=== PATIENT | male | born 1965 | race Caucasian/White ===

== ENCOUNTER 2020-09-06 06:06 | Inpatient (IN) | payer OTHER ==
[~2020-09-06] VITALS: Ht 182.9 cm; Wt 94.3 kg
[~2020-09-06 06:06] MED LIST: TYL3 PO
[2020-09-06] MEDS ORDERED: 0.9%NACL 1000ML 1,000 ML IV ONE (06:45)
[2020-09-06] MEDS ORDERED: ONDANSETRON 4MG INJ ONE ×3 (06:46→22:00)
[2020-09-06] MEDS ORDERED: MORPHINE 4 MG SYG ONE (06:46)
[2020-09-06 06:50] LABS: BASOPHILS % (AUTO) 0.5 % (0.0-5.0); EOSINOPHILS % (AUTO) 0.3 % (0.0-8.0); HEMATOCRIT 45.4 % (42-54); LYMPHOCYTES % (AUTO) 13.2 % (21.0-51.0); MEAN CORPUSCULAR HEMOGLOBIN 35.1 pg (27.0-33.0); MONOCYTES % (AUTO) 6.9 % (3.0-13.0); NEUTROPHILS % (AUTO) 78.6 % (40.0-77.0); PLATELET COUNT (AUTO) 300 K/uL (130-400); RED BLOOD CELL COUNT(AUTO) 4.78 MIL/uL (4.50-6.20); RED CELL DISTRIBUTION WIDTH 12.7 % (11.0-15.5); WHITE BLOOD COUNT (AUTO) 14.7 K/uL (4.8-10.8)
[2020-09-06 06:56] LABS: APPEARANCE,URINE Clear (CLEAR); BILIRUBIN,URINE Negative (NEGATIVE); COLOR,URINE Dark Yellow (YELLOW); GLUCOSE, URINE (UA) Negative (NEGATIVE); KETONES,URINE 15 mg/dL (NEGATIVE); LEUKOCYTE ESTERASE ,URINE Negative (NEGATIVE); NITRATE,URINE Negative (NEGATIVE); OCCULT BLOOD,URINE Negative (NEGATIVE); PROTEIN,URINE POS 2+ mg/dL (NEGATIVE)
[2020-09-06] MEDS ORDERED: KETOROLAC 30MG VIAL (30MG/ML) ONE (07:07)
[2020-09-06 07:09] LABS: CREATININE 1.3 mg/dL (0.5-1.5); POTASSIUM 4.8 mmol/L (3.5-5.1)
[2020-09-06 07:21] LABS: ALBUMIN 4.1 g/dL (3.5-5.0)
[2020-09-06 07:49] LABS: BACTERIA,URINE Rare /HPF (None Seen); MUCUS,URINE Few LPF (None Seen); RBC,URINE 0-1 /HPF (0-1); SQUAMOUS EPITHELIAL CELL,UR Rare /HPF (0-2); WBC,URINE 0-1 /HPF (0-1)
[2020-09-06 07:50] LABS: HYALINE CASTS, URINE 0-1 /LPF (0-1 /LPF)
[2020-09-06] MEDS ORDERED: HYDROMORPHONE 0.5 MG SYG (0.5MG/0.5ML) ONE ×2 (08:30→10:15)
[2020-09-06 08:52] LABS: CHOLESTEROL 246 mg/dL (<200); HDL CHOLESTEROL 46 mg/dL (29-71); LDL DIRECT 146 mg/dL (0-99); TRIGLYCERIDES 514 mg/dL (30-200)
[2020-09-06] MEDS: ENOXAPARIN SODIUM 40 MG/0.4 ML SYRINGE SQ SCH (09:00)
[2020-09-06] MEDS: 0.9%NACL 1000ML 1,000 ML IV SCH ×3 (09:00→19:00)
[2020-09-06] MEDS ORDERED: HYDROMORPHONE 1 MG INJ IVP PRN (09:00)
[2020-09-06] MEDS: HYDROCHLOROTHIAZIDE 25 MG TABLET PO SCH (09:00)
[2020-09-06] MEDS: LISINOPRIL 10 MG TABLET PO SCH (09:00)
[2020-09-06] MEDS ORDERED: ONDANSETRON 4MG INJ IV PRN (09:00)
[2020-09-06] MEDS: FAMOTIDINE 20MG VIAL IV SCH (09:00)
[2020-09-06] MEDS ORDERED: METOPROLOL TARTRATE 25 MG TAB PO SCH (09:00)
[2020-09-06] MEDS ORDERED: IOHEXOL-350 75 ML VIAL IV ONE (09:01)
[2020-09-06] MEDS: NICOTINE 21 MG/ 24 HR PATCH TD SCH (09:30)
[2020-09-06] MEDS ORDERED: LABETALOL 20MG SYG IV PRN (09:30)
[2020-09-06 10:01] LABS: AMPHET/METH SCREEN,URINE NEGATIVE (NEGATIVE); BARBITURATE SCREEN, URINE NEGATIVE (NEGATIVE); BENZODIAZEPINES SCREEN,URINE NEGATIVE (NEGATIVE); CANNABINOID SCREEN,URINE NEGATIVE (NEGATIVE); COCAINE SCREEN,URINE NEGATIVE (NEGATIVE); OPIATE SCREEN,URINE NEGATIVE (NEGATIVE); PHENCYCLIDINE SCREEN,URINE NEGATIVE (NEGATIVE)
[2020-09-06] MEDS ORDERED: LISINOPRIL 5 MG TABLET ONE (10:13)
[2020-09-06] MEDS ORDERED: ENOXAPARIN SODIUM 40 MG/0.4 ML SYRINGE SQ ONE (10:14)
[2020-09-06] MEDS ORDERED: METOPROLOL TARTRATE 25 MG TAB ONE (10:14)
[2020-09-06] MEDS ORDERED: HYDROCHLOROTHIAZIDE 25 MG TABLET ONE (10:14)
[2020-09-06] MEDS ORDERED: FAMOTIDINE 20MG VIAL IV ONE (10:15)
[2020-09-06 10:52] LABS: MAGNESIUM 1.6 mg/dL (1.80-2.40); PHOSPHORUS 2.9 mg/dL (2.5-4.9)
[2020-09-06 10:54] LABS: HEMOGLOBIN A1C 6.5 % (4.0-6.0)
[2020-09-06] MEDS ORDERED: LABETALOL 20MG SYG IV ONE ×3 (11:19→22:01)
[2020-09-06] MEDS ORDERED: HYDROMORPHONE 1 MG INJ ONE ×2 (15:26→20:12)
[2020-09-06] MEDS ORDERED: METOPROLOL TARTRATE 50 MG TAB ONE (20:12)
[2020-09-06] MEDS: METOPROLOL TARTRATE 50 MG TAB PO SCH (21:00)
[2020-09-07] MEDS ORDERED: HYDROMORPHONE 1 MG INJ ONE (00:49)
[2020-09-07] MEDS ORDERED: 0.9%NACL 1000ML 1,000 ML IV ONE (01:19)
[2020-09-07 02:05] VITALS: BP 125/83
[2020-09-07] MEDS ORDERED: OLME-11 PO (02:44)
[2020-09-07] MEDS ORDERED: TRAM50TA4 PO (02:44)
[2020-09-07] MEDS: 0.9%NACL 1000ML 1,000 ML IV SCH ×4 (04:49→17:20)
[2020-09-07] MEDS: HYDROMORPHONE 1 MG INJ IVP PRN ×5 (04:49→21:32)
[2020-09-07 06:16] LABS: CHOLESTEROL 198 mg/dL (<200); HDL CHOLESTEROL 117 mg/dL (29-71); LDL DIRECT 116 mg/dL (0-99); TRIGLYCERIDES 301 mg/dL (30-200)
[2020-09-07 07:29] VITALS: BP 169/96
[2020-09-07] MEDS: ENOXAPARIN SODIUM 40 MG/0.4 ML SYRINGE SQ SCH (08:57)
[2020-09-07 11:01] VITALS: BP 183/89
[2020-09-07] MEDS: LISINOPRIL 10 MG TABLET PO SCH (12:15)
[2020-09-07] MEDS: METOPROLOL TARTRATE 50 MG TAB PO SCH ×2 (12:15→21:31)
[2020-09-07] MEDS: NICOTINE 21 MG/ 24 HR PATCH TD SCH (12:16)
[2020-09-07] MEDS: HYDROCHLOROTHIAZIDE 25 MG TABLET PO SCH (12:21)
[2020-09-07] MEDS: FAMOTIDINE 20MG VIAL IV SCH (12:42)
[2020-09-07 15:56] VITALS: BP 165/89
[2020-09-07 20:09] VITALS: BP 157/87
[2020-09-07 23:47] VITALS: BP 146/82
[2020-09-08] MEDS: 0.9%NACL 1000ML 1,000 ML IV SCH ×6 (01:00→21:21)
[2020-09-08] MEDS: HYDROMORPHONE 1 MG INJ IVP PRN ×5 (01:40→18:44)
[2020-09-08 03:15] VITALS: BP 144/81
[2020-09-08 05:28] LABS: BASOPHILS % (AUTO) 0.2 % (0.0-5.0); EOSINOPHILS % (AUTO) 0.4 % (0.0-8.0); HEMATOCRIT 40.2 % (42-54); LYMPHOCYTES % (AUTO) 9.1 % (21.0-51.0); MEAN CORPUSCULAR HEMOGLOBIN 35.3 pg (27.0-33.0); MEAN CORPUSCULAR HGB CONC 35.1 g/dL (32.0-36.0); MEAN CORPUSCULAR VOLUME 100.5 fL (79-99); MONOCYTES % (AUTO) 6.7 % (3.0-13.0); PLATELET COUNT (AUTO) 178 K/uL (130-400); RED CELL DISTRIBUTION WIDTH 13.4 % (11.0-15.5); WHITE BLOOD COUNT (AUTO) 14.1 K/uL (4.8-10.8)
[2020-09-08 06:06] LABS: ALBUMIN 2.9 g/dL (3.5-5.0); BILIRUBIN,TOTAL 0.8 mg/dL (0.2-1.0); CREATININE 1.2 mg/dL (0.5-1.5); POTASSIUM 3.6 mmol/L (3.5-5.1); TOTAL PROTEIN, SERUM 6.2 g/dL (6.0-8.3)
[2020-09-08 08:00] VITALS: BP 158/91
[2020-09-08] MEDS ORDERED: KETOROLAC 15MG/ML VIAL (15MG/ML) IM PRN (08:30)
[2020-09-08] MEDS: FAMOTIDINE 20MG VIAL IV SCH (09:39)
[2020-09-08] MEDS: LISINOPRIL 10 MG TABLET PO SCH (09:40)
[2020-09-08] MEDS: HYDROCHLOROTHIAZIDE 25 MG TABLET PO SCH (09:40)
[2020-09-08] MEDS: METOPROLOL TARTRATE 50 MG TAB PO SCH ×2 (09:40→21:20)
[2020-09-08] MEDS: ENOXAPARIN SODIUM 40 MG/0.4 ML SYRINGE SQ SCH (09:41)
[2020-09-08] MEDS: NICOTINE 21 MG/ 24 HR PATCH TD SCH (09:41)
[2020-09-08 12:00] VITALS: BP 170/94
[2020-09-08 16:00] VITALS: BP 185/102
[2020-09-08 20:04] VITALS: BP 169/92
[2020-09-09 00:04] VITALS: BP 167/94
[2020-09-09] MEDS ORDERED: HYDROMORPHONE 0.5 MG SYG (0.5MG/0.5ML) ONE ×2 (01:09→22:03)
[2020-09-09] MEDS: HYDROMORPHONE 1 MG INJ IVP PRN ×2 (01:16→08:41)
[2020-09-09 04:04] VITALS: BP 175/95
[2020-09-09 05:15] LABS: BASOPHILS % (AUTO) 0.2 % (0.0-5.0); EOSINOPHILS % (AUTO) 0.6 % (0.0-8.0); HEMATOCRIT 35.3 % (42-54); LYMPHOCYTES % (AUTO) 10.3 % (21.0-51.0); MEAN CORPUSCULAR HEMOGLOBIN 35.5 pg (27.0-33.0); MEAN CORPUSCULAR VOLUME 98.6 fL (79-99); MONOCYTES % (AUTO) 9.7 % (3.0-13.0); NEUTROPHILS % (AUTO) 78.1 % (40.0-77.0); NUCLEATED RED BLOOD CELLS 0.2 % (0.0-0.19); PLATELET COUNT (AUTO) 183 K/uL (130-400); RED BLOOD CELL COUNT(AUTO) 3.58 MIL/uL (4.50-6.20); WHITE BLOOD COUNT (AUTO) 8.4 K/uL (4.8-10.8)
[2020-09-09 05:53] LABS: ALBUMIN 2.6 g/dL (3.5-5.0); BILIRUBIN,TOTAL 0.7 mg/dL (0.2-1.0); TOTAL PROTEIN, SERUM 6.1 g/dL (6.0-8.3)
[2020-09-09 06:01] LABS: POTASSIUM 2.9 mmol/L (3.5-5.1)
[2020-09-09 08:00] VITALS: BP 189/95
[2020-09-09] MEDS: FAMOTIDINE 20MG VIAL IV SCH (08:39)
[2020-09-09] MEDS: METOPROLOL TARTRATE 50 MG TAB PO SCH (08:39)
[2020-09-09] MEDS: HYDROCHLOROTHIAZIDE 25 MG TABLET PO SCH (08:39)
[2020-09-09] MEDS: NICOTINE 21 MG/ 24 HR PATCH TD SCH (08:40)
[2020-09-09] MEDS: LISINOPRIL 10 MG TABLET PO SCH (08:40)
[2020-09-09] MEDS: ENOXAPARIN SODIUM 40 MG/0.4 ML SYRINGE SQ SCH (08:40)
[2020-09-09 11:49] VITALS: BP 155/87
[2020-09-09] MEDS: POTASSIUM CHLORIDE 20MEQ/100ML 100 ML IV PRN ×2 (12:06→21:59)
[2020-09-09] MEDS: LIDOCAINE HCL-MPF 1% 2ML VIAL IV PRN (12:07)
[2020-09-09] MEDS ORDERED: LABETALOL 20MG SYG IV PRN (13:30)
[2020-09-09 14:37] LABS: CREATININE 1.1 mg/dL (0.5-1.5)
[2020-09-09 14:42] LABS: POTASSIUM 2.8 mmol/L (3.5-5.1)
[2020-09-09] MEDS: METOPROLOL TARTRATE 25 MG TAB PO SCH ×2 (14:48→21:58)
[2020-09-09 16:00] VITALS: BP 163/89
[2020-09-09] MEDS ORDERED: POTASSIUM CHLORIDE 20MEQ/100ML 100 ML IV PRN ×2 (16:45)
[2020-09-09] MEDS ORDERED: POTASSIUM CHLORIDE 10% ELIXIR 20 MEQ/15 ML UDCUP PO PRN (16:45)
[2020-09-09 20:00] VITALS: BP 170/89
[2020-09-09] MEDS: 0.9%NACL 1000ML 1,000 ML IV SCH ×2 (21:17→21:58)
[2020-09-10] VITALS (7 sets, daily range): BP systolic 141–186; BP diastolic 66–100
[2020-09-10] MEDS ORDERED: HYDROMORPHONE 0.5 MG SYG (0.5MG/0.5ML) ONE (04:15)
[2020-09-10 05:15] LABS: BASOPHILS % (AUTO) 0.2 % (0.0-5.0); EOSINOPHILS % (AUTO) 1.6 % (0.0-8.0); HEMATOCRIT 34.5 % (42-54); LYMPHOCYTES % (AUTO) 13.1 % (21.0-51.0); MEAN CORPUSCULAR HGB CONC 36.2 g/dL (32.0-36.0); MEAN CORPUSCULAR VOLUME 96.6 fL (79-99); MONOCYTES % (AUTO) 13.4 % (3.0-13.0); NEUTROPHILS % (AUTO) 70.5 % (40.0-77.0); PLATELET COUNT (AUTO) 217 K/uL (130-400); RED BLOOD CELL COUNT(AUTO) 3.57 MIL/uL (4.50-6.20); RED CELL DISTRIBUTION WIDTH 12.9 % (11.0-15.5); WHITE BLOOD COUNT (AUTO) 8.8 K/uL (4.8-10.8)
[2020-09-10 05:44] LABS: ALBUMIN 2.5 g/dL (3.5-5.0); BILIRUBIN,TOTAL 0.4 mg/dL (0.2-1.0); CREATININE 0.9 mg/dL (0.5-1.5); TOTAL PROTEIN, SERUM 6.1 g/dL (6.0-8.3)
[2020-09-10 05:57] LABS: POTASSIUM 2.7 mmol/L (3.5-5.1)
[2020-09-10] MEDS: LIDOCAINE HCL-MPF 1% 2ML VIAL IV PRN (06:02)
[2020-09-10] MEDS: POTASSIUM CHLORIDE 20MEQ/100ML 100 ML IV PRN ×2 (06:02→20:07)
[2020-09-10] MEDS: HYDROCHLOROTHIAZIDE 25 MG TABLET PO SCH (08:48)
[2020-09-10] MEDS: METOPROLOL TARTRATE 25 MG TAB PO SCH (08:48)
[2020-09-10] MEDS: FAMOTIDINE 20MG VIAL IV SCH (08:48)
[2020-09-10] MEDS: ENOXAPARIN SODIUM 40 MG/0.4 ML SYRINGE SQ SCH (08:48)
[2020-09-10] MEDS: NICOTINE 21 MG/ 24 HR PATCH TD SCH (08:52)
[2020-09-10] MEDS: KCL 20 MEQ ERTAB PO PRN ×3 (08:54→20:07)
[2020-09-10] MEDS: 0.9%NACL 1000ML 1,000 ML IV SCH (08:55)
[2020-09-10] MEDS: NS-20 MEQ KCL 1000ML 1,000 ML IV SCH ×2 (12:09→23:22)
[2020-09-10] MEDS: METOPROLOL TARTRATE 50 MG TAB PO SCH ×2 (13:26→20:07)
[2020-09-10 17:08] LABS: CREATININE 1.2 mg/dL (0.5-1.5); POTASSIUM 3.1 mmol/L (3.5-5.1)
[2020-09-10] MEDS: HYDROMORPHONE 0.5 MG SYG (0.5MG/0.5ML) IVP PRN (20:09)
[2020-09-11 00:07] VITALS: BP 159/95
[2020-09-11 03:40] VITALS: BP 118/103
[2020-09-11] MEDS: HYDROMORPHONE 0.5 MG SYG (0.5MG/0.5ML) IVP PRN (04:20)
[2020-09-11 07:20] VITALS: BP 168/89
[2020-09-11] MEDS ORDERED: LISINOPRIL 10 MG TABLET PO SCH (08:30)
[2020-09-11] MEDS ORDERED: MAGNESIUM 2GM PREMIX 50ML 50 ML IV PRN (08:30)
[2020-09-11] MEDS: ENOXAPARIN SODIUM 40 MG/0.4 ML SYRINGE SQ SCH (09:30)
[2020-09-11] MEDS: FAMOTIDINE 20MG VIAL IV SCH (09:31)
[2020-09-11] MEDS: NICOTINE 21 MG/ 24 HR PATCH TD SCH (09:31)
[2020-09-11] MEDS: METOPROLOL TARTRATE 50 MG TAB PO SCH ×2 (09:31→13:53)
[2020-09-11 11:30] VITALS: BP 159/98
[2020-09-11] MEDS ORDERED: METF-444 PO (14:50)
[2020-09-11 16:00] VITALS: BP 180/98
== END 2020-09-11 16:00 | disposition home or self-care (01) | DRG 439 ==
LOC: EDH 06:06 → EDHIP 08:51 → 3BH 09-07 01:18
PROVIDERS: ADMIT Internal Medicine; ATTEND Internal Medicine
DX: K85.90 Acute pancreatitis without necrosis or infection, unspecified (principal); E87.1 Hypo-osmolality and hyponatremia; R65.10 Systemic inflammatory response syndrome (SIRS) of non-infectious origin without acute organ dysfunction; K86.3 Pseudocyst of pancreas; E86.1 Hypovolemia; I16.0 Hypertensive urgency; Z82.49 Family history of ischemic heart disease and other diseases of the circulatory system; K86.1 Other chronic pancreatitis; K21.9 Gastro-esophageal reflux disease without esophagitis; F17.210 Nicotine dependence, cigarettes, uncomplicated; D72.829 Elevated white blood cell count, unspecified; R74.01 Elevation of levels of liver transaminase levels
CPT/HCPCS: 36415; 74177; 74181; 80048; 80053; 80061; 80305; 81001; 82150; 82550; 83036; 83690; 83735; 84100; 84132; 84145; 85025; 93005; G0378; J1170; J1650; J1885; J2270; J2405; J3480; J3490; J7030; Q9967

== ENCOUNTER → 2024-10-17 | Outpatient (CLI) | payer OTHER ==
[~2024-10-17] MED LIST changes: +GABA300C PO; +HYDR25TA PO; +LOSA-420 PO; +METF-444 PO; +NIFE-40 PO; -TYL3 PO
[2024-10-17 12:32] LABS: POTASSIUM 5.1 mmol/L (3.5-5.1)
== END | disposition home or self-care (01) ==
LOC: LAB 10:17
PROVIDERS: ATTEND Student in an Organized Health Care Education/Training Program
DX: I10 Essential (primary) hypertension (principal)
CPT/HCPCS: 36415; 80048

== ENCOUNTER → 2024-10-22 | Outpatient (CLI) | payer OTHER ==
[~2024-10-22] MED LIST changes: +IOHEXOL 350 MG/ML 100ML INFUS..BTL IV ONE; +metoPROLOL tartRATE 1 MG/ML 5ML VIAL IV ONE
== END | disposition home or self-care (01) ==
LOC: RAH 09:01
PROVIDERS: ATTEND Student in an Organized Health Care Education/Training Program
DX: Z53.9 Procedure and treatment not carried out, unspecified reason (principal); I10 Essential (primary) hypertension; R94.31 Abnormal electrocardiogram [ECG] [EKG]
CPT/HCPCS: J3490; Q9967

== ENCOUNTER → 2024-12-09 | Outpatient (CLI) | payer OTHER ==
[~2024-12-09] MED LIST changes: -IOHEXOL 350 MG/ML 100ML INFUS..BTL IV ONE; -metoPROLOL tartRATE 1 MG/ML 5ML VIAL IV ONE
[2024-12-09 12:37] LABS: BILIRUBIN,TOTAL 0.2 mg/dL (0.2-1.0); CREATININE 1.1 mg/dL (0.5-1.3); POTASSIUM 5.1 mmol/L (3.5-5.1); TOTAL PROTEIN, SERUM 7.4 g/dL (6.0-8.3)
== END | disposition home or self-care (01) ==
LOC: LAB 10:45
PROVIDERS: ATTEND Student in an Organized Health Care Education/Training Program
DX: I10 Essential (primary) hypertension (principal); Z82.49 Family history of ischemic heart disease and other diseases of the circulatory system
CPT/HCPCS: 36415; 80053

== ENCOUNTER 2025-01-12 14:18 | Emergency (ER) | payer OTHER ==
[~2025-01-12] VITALS: Ht 182.9 cm; Wt 88.5 kg
[~2025-01-12 14:18] MED LIST changes: +AMLO-258 PO; +CARV6.2579 PO; +LOSA50TA64 PO
[2025-01-12] MEDS ORDERED: AMOX1TAB16 PO (15:39)
--- NOTE | 2025-01-12 15:42 | ERN ---
General Chief Complaint: Wound Check Stated Complaint: TOE INJURY, SWELLING Time Seen by MD: 14:20 History of Present Illness Initial Comments 59-year-old male diabetic presents for a toe injury to the right great toe. Three days ago he stubbed his toe. He has decreased sensation. He reports that since then he has had a blister on top and appears to be spreading. He has no systemic symptoms. He has no pain or discomfort. He does have diabetic neuropathy and is concerned about infection. Allergies: Coded Allergies: No Allergy Information Available (Verified Allergy, Unknown, 05/01/17) No Known Drug Allergies (Unverified Allergy, Unknown, 12/17/24) Home Meds Active Scripts Nifedipine (Nifedipine ER) 30 Mg Tab.er.24, 60 MG PO Q12H9, #120 TAB 0 Refills Prov:SONALI PURDY MD 08/14/24 Losartan Potassium (Cozaar) 100 Mg Tablet, 100 MG PO DAILY, #30 TAB 0 Refills Prov:SONALI PURDY MD 08/14/24 Hydrochlorothiazide (Hydrochlorothiazide) 25 Mg Tablet, 50 MG PO DAILY, #60 TAB 0 Refills Prov:SONALI PURDY MD 08/14/24 Carvedilol (Coreg) 6.25 Mg Tablet, 6.25 MG PO BID for 30 Days, #60 TAB 0 Refills Prov:HONEY GRIDER MD 02/05/21 Amlodipine Besylate (Amlodipine Besylate) 10 Mg Tablet, 10 MG PO DAILY for 30 Days, #30 TAB 0 Refills Prov:HONEY GRIDER MD 02/05/21 Losartan Potassium (Losartan Potassium) 50 Mg Tablet, 75 MG PO DAILY for 30 Days, #60 TAB 0 Refills Prov:HONEY GRIDER MD 02/05/21 Reported Medications Gabapentin (Neurontin) 300 Mg Capsule, 1 CAP PO TIDP PRN for neuropathy 08/13/24 Metformin HCl (Metformin HCl) 500 Mg Tablet, 2 TAB PO BIDAC 08/13/24 Past Medical History Past Medical History: Diabetes-Type II, Hypertension, Pancreatitis Medical History Other: NEUROPATHY Past Surgical History: None Surgical History Other: FINGER ROS Dictation CONSTITUTIONAL: No chills, no fever, no weakness, no diaphoresis, no malaise. HEAD/FACE: No signs of trauma. EENT: No eye pain, no blurred vision, no tearing, no double vision, no ear pain, no ear discharge, no nose pain, no nasal congestion, no throat pain, no throat swelling, no mouth pain. RESPIRATORY: No cough, no orthopnea, no SOB, no stridor, no wheezing. CARDIOVASCULAR: No chest pain, no edema, no palpitations, no syncope. GASTROINTESTINAL/ABDOMINAL: No abdominal pain, no constipation, no diarrhea, no nausea, no vomiting. GENITOURINARY: No abnormal discharge, no dysuria, no frequent urination, no hematuria. No complaints of pain in the genitals. MUSCULOSKELETAL: No back pain, no gout, no joint pain, no joint swelling, no muscle pain, no muscle stiffness, no neck pain. INTEGUMENTARY: No change in color, no change in hair/nails, no dryness, no lesion, no lumps, no rash. NEUROLOGICAL/PSYCH: No anxiety, not depressed, no emotional problem, no headache, no numbness, no pre-existing deficit, no history of seizures, no tremors, no weakness. HEMATOLOGIC/LYMPHATIC: Not anemic, no history of blood clots, no apparent bleeding, no bruising, glands not swollen. All Systems Negative, Except as Noted. Physical Exam Physical Exam Dictation VITAL SIGNS: Reviewed. GENERAL APPEARANCE: Alert, oriented x3, no acute distress. HEAD AND FACE: Non-traumatic. EYES: PERRL, pink conjunctivas, eyelid no trauma, anterior chamber clear. EARS: Pinnas intact and no signs of trauma or erythema. Ear canals clear and no discharge. TMs no erythema. NOSE: No discharge, no bleeding. OROPHARYNX: Mouth normal, teeth no caries, tongue pink. Pharynx clear, no erythema. Tonsils no exudates, no abscesses noted. Mucous membrane moist. NECK: Supple, non-tender, no thyromegaly, no masses, no JVD, no bruits. BREAST: Deferred. CHEST: No tenderness, no crepitus, no paradoxical movement, no retractions. LUNGS: Clear, well-ventilated, symmetric, no rales, no wheezing, no rhonchi, no stridor, good breath sounds bilaterally. HEART: Regular rate, regular rhythm, no murmur, no gallops. VASCULAR: No peripheral edema. ABDOMEN: Soft, positive bowel sounds, nondistended, no guarding, nontender, no rebound, no masses no hepatomegaly, no splenomegaly, no Byrd's sign, no hernias. RECTAL: Deferred. GENITAL: Deferred. NEUROLOGICAL: Normal speech, gross motor function intact, gross sensory function intact. MUSCULOSKELETAL: Neck nontender, full range of motion, back nontender, full range of motion. Left toe blood blister EXTREMITIES: Nontender, full range of motion. SKIN: Color pink, dry, no turgor, no rash, no lacerations, no abrasions, no contusions. LYMPHATICS: Deferred. MDM CC: Great right toe injury three days ago with blistering Historian: Patient Comorbidities: Diabetes, hypertension Limitations by social determinants of health: None Differential diagnosis: Infection versus soft tissue injury On clinical exam he has a blood blister and the nail is coming off. He has no sensation. Cap refills less than 2 seconds. There is no erythema or signs of infection. No purulence. He is able to flex and extend the toe. Vital signs are stable Lab work is unremarkable. No significant signs of inflammation. Independently interpreted by me. Patient declined an x-ray. I did perform a drainage of the blister since it was so large and expanding. Serosanguineous fluid removed Placed in wet-to-dry dressing We will DC with the antibiotics due to the patient's high-risk and we will also give him a referral to wound care and podiatry. Patient agrees with this plan. ED Course Orders Procedure Category Date Status Time Cbc With Differential LAB 01/12/25 Logged 14:49 Basic Metabolic Panel LAB 01/12/25 Logged 14:49 Crp Quantitative LAB 01/12/25 Logged 14:49 Vital Signs Date Time Temp Pulse Resp B/P (MAP) Pulse Ox O2 Delivery O2 Flow Rate FiO2 01/12/25 14:42 98.6 91 16 179/98 95 Room Air 0 DX & DISP Disposition: Discharge Departure Impression: Primary Impression: Injury of great toe Additional Impression: Injury of great toenail Condition: Stable Scripts Amoxicillin/Potassium Clav (Amox Tr-K Clv 875-125 mg Tab) 875 Mg-125 Mg Tablet 1 TAB PO BID for 10 Days, #20 TAB 0 Refills Prov: KOKI VILLEGAS DO 01/12/25 Additional Instructions: The blister was drained here in the ER. As we discussed, keep the area clean with soap and water. I recommend applying wet to dry dressings at least every 24 hours. I have prescribed Augmentin, which is an antibiotic. Take the entire course as prescribed. Monitor for signs of infection. As we discussed, I recommend follow up with the either wound care (Dr. Gallegos) or podiatry (Dr. Da Silva). I have given you a referral for both. Call for an appointment. Please return to the emergency department if you have any concerns. Referrals: MARYAN DA SILVA DPM, JOSE MARIANO MD WORTH, RYAN E DO January 12, 2025 15:42
[2025-01-12 15:49] LABS: BASOPHILS # (AUTO) 0.03 K/uL (0.00-0.20); BASOPHILS % (AUTO) 0.4 % (0.0-5.0); EOSINOPHILS # (AUTO) 0.12 K/uL (0.00-0.70); EOSINOPHILS % (AUTO) 1.5 % (0.0-8.0); HEMATOCRIT 39.6 % (42-54); IMMATURE GRANULOCYTE ABSOLUTE 0.03 K/uL (0-1); LYMPHOCYTES # (AUTO) 2.2 K/uL (1.0-4.8); LYMPHOCYTES % (AUTO) 27.6 % (21.0-51.0); MEAN CORPUSCULAR HEMOGLOBIN 33.8 pg (27.0-33.0); MEAN CORPUSCULAR HGB CONC 35.4 g/dL (32.0-36.0); MEAN CORPUSCULAR VOLUME 95.7 fL (79-99); MONOCYTES # (AUTO) 0.7 K/uL (0.1-1.0); MONOCYTES % (AUTO) 9.4 % (3.0-13.0); NEUTROPHILS # (AUTO) 4.8 K/uL (1.8-7.7); NEUTROPHILS % (AUTO) 60.7 % (40.0-77.0); PLATELET COUNT (AUTO) 274 K/uL (130-400); RED BLOOD CELL COUNT(AUTO) 4.14 MIL/uL (4.50-6.20); RED CELL DISTRIBUTION WIDTH 12.7 % (11.0-15.5); WHITE BLOOD COUNT (AUTO) 7.9 K/uL (4.8-10.8)
[2025-01-12 15:57] LABS: CREATININE 1.4 mg/dL (0.5-1.3); POTASSIUM 4.3 mmol/L (3.5-5.1)
[2025-01-12 16:30] VITALS: BP 165/92; PULSE 86; RESP 16; TEMP 98.6; O2SAT 97
== END 2025-01-12 16:44 | disposition home or self-care (01) ==
LOC: EDH 14:18
DX: S90.425A Blister (nonthermal), left lesser toe(s), initial encounter (principal); E11.40 Type 2 diabetes mellitus with diabetic neuropathy, unspecified; I10 Essential (primary) hypertension; Z79.899 Other long term (current) drug therapy; W22.8XXA Striking against or struck by other objects, initial encounter; Y93.89 Activity, other specified; Y92.89 Other specified places as the place of occurrence of the external cause; Y99.8 Other external cause status
CPT/HCPCS: 36415; 80048; 85025; 86140; 99283